=== PATIENT | female | born 1945 | race Caucasian/White ===

== ENCOUNTER 2018-09-28 13:43 | Outpatient (CLI) | payer MEDICARE, OTHER ==
--- NOTE | 2018-09-28 15:29 | BD ---
DEXA BONE MINERAL DENSITY STUDY: HISTORY: Osteoporosis. COMPARISON: None. FINDINGS: Lumbar Spine: BMD (g/cm2) L1 0.932 T-Score: -0.5 1.4 L2 0.951 T-Score: -0.7 1.5 L3 0.885 T-Score: -1.8 0.5 L4 0.858 T-Score: -1.8 0.5 L1-L4 0.900 T-Score: -1.3 0.9 WHO classification osteopenia. Femoral Neck: 0.645 T-Score: -1.8 0.1 Total Femur: 0.819 T-Score: -1.0 0.6 WHO classification osteopenia. FRAX score is not reported as the patient has been treated for osteoporosis. Impression: Osteopenia. POS: [facility]
== END 2018-09-28 13:44 | disposition home or self-care (01) ==
LOC: BICMAMMO 13:43
PROVIDERS: ATTEND Internal Medicine Rheumatology
DX: M81.0 Age-related osteoporosis without current pathological fracture (principal); M85.89 Other specified disorders of bone density and structure, multiple sites
CPT/HCPCS: 77080

== ENCOUNTER 2020-08-21 14:28 | Outpatient (CLI) | payer MEDICARE, OTHER ==
--- NOTE | 2020-08-21 15:32 | MRI ---
Exam: Thoracic spine MRI without contrast HISTORY: Mid back pain. Injury of disc disease. Symptoms of radiculopathy involving the T5-7 level. COMPARISON: None FINDINGS: Appropriate T1 marrow signal intensity thoracic vertebra. Slight heterogeneity is felt to be due to s enescent change. Thoracic spine vertebral body heights are maintained. There is no fracture. No significant STIR hyperintensity to suggest ligamentous injury or vertebral body edema. Visualized mediastinum, lung parenchyma and solid organs of appropriate signal intensity The thoracic cord has normal size and signal intensity. No cord expansion. No cord malacia. No abnorm al T2 hyperintensities in the thoracic cord. Throughout the thoracic spine, neural foramina are patent Spondylolisthesis: T2-T3: 1 mm of anterolisthesis T3-T4: 1 mm anterolisthesis T4-T5: 1.5 mm of anterolisthesis T1-T2: Disc herniation without significant central canal stenosis. T2-T3: No significant central canal stenosis T3-T4 through T12-L1: No significant ductal canal stenosis. IMPRESSION: No significant central canal stenosis throughout the thoracic spine.
== END 2020-08-21 14:29 | disposition home or self-care (01) ==
LOC: TBSIIMAG 14:28
PROVIDERS: ATTEND Anesthesiology Pain Medicine
DX: M51.24 Other intervertebral disc displacement, thoracic region (principal)
CPT/HCPCS: 72146

== ENCOUNTER 2025-07-24 06:35 | Day surgery (SDC) | payer MEDICARE, OTHER ==
[2025-07-21 11:40] VITALS: BMI 24.2
[2025-07-24] MEDS ORDERED: PROPOFOL 40 ML ONE (08:07)
[2025-07-24] MEDS ORDERED: GLYCOPYRROLATE/PF 0.2 MG/ML VIAL ONE (08:08)
[2025-07-24] MEDS ORDERED: PROPOFOL 200 MG/20 ML VIAL ONE (08:54)
[2025-07-24] MEDS ORDERED: PROPOFOL 20 ML ONE (09:33)
== END 2025-07-24 10:50 | disposition home or self-care (01) ==
LOC: SDC 06:35
PROVIDERS: ATTEND Internal Medicine Gastroenterology
PROC: 0D750ZZ Dilation of Esophagus, Open Approach (ICD-10-PCS; principal; 2025-07-24)
DX: D12.2 Benign neoplasm of ascending colon (principal); D12.4 Benign neoplasm of descending colon; K57.30 Diverticulosis of large intestine without perforation or abscess without bleeding; R15.9 Full incontinence of feces; K21.9 Gastro-esophageal reflux disease without esophagitis; R13.12 Dysphagia, oropharyngeal phase; R13.19 Other dysphagia; Z98.1 Arthrodesis status; Z88.0 Allergy status to penicillin; Z88.5 Allergy status to narcotic agent; Z88.1 Allergy status to other antibiotic agents; Z91.018 Allergy to other foods; Z90.710 Acquired absence of both cervix and uterus; Z86.0100 Personal history of colon polyps, unspecified
CPT/HCPCS: 43450; 45385; J2704; J3490; 88305